=== PATIENT | male | born 2000 | race Caucasian/White ===

== ENCOUNTER 2023-06-25 10:45 | Emergency (ER) | payer BC, SELFPAY ==
--- NOTE | ~2023-06-25 | XR_ITS ---
XR thoracic spine 3V DATE: 06/25/2023 11:50 INDICATION: Patient fell snowboarding on May 03, 2023. Mid to left back pain. TECHNIQUE: AP, lateral and swimmer views COMPARISON: None FINDINGS: Moderate thoracic dextroscoliosis. No fracture or dislocation or bone destruction. The thoracic pedicles are intact. No paraspinal soft tissue thickening. IMPRESSION: Dextroscoliosis Reviewed, dictated and finalized at location B. IMPRESSION: Dextroscoliosis
[2023-06-25 11:01] VITALS: BP 120/42; PULSE 89; RESP 16; TEMP 35.7; O2SAT 100
--- NOTE | 2023-06-25 11:31 | ED.BACK ---
HPI - Back Pain/Injury General Chief Complaint: Back Pain/Injury Stated Complaint: Back Pain Time Seen by Provider: 06/25/23 11:20 Source: patient, RN notes reviewed, old records reviewed and other (friend) Mode of arrival: ambulatory Limitations: no limitations History of Present Illness HPI Narrative: 23 year old male accompanied by friend presents to express care with complaints of pain to his left upper thoracic back region since wiping out while snowboarding on May 03. Patient reports that he continues to have dull pain to his left thoracic back region which is aggravated by position changes, laughing, coughing rolling over in bed. Patient reports that pain is dull ache mainly but at times sharp with certain movements. Patient reports that he has not taken any OTC medications for his symptoms. Patient report that he has no radiation of pain in his legs or arms, moves all extremities on own power with no tingling or numbness to extremities. MD elicited complaint: back pain (thoracic) and fall (while snowboarding) Pertinent past history: recent trauma Onset (ago): week(s) (since injury on May 03) Pain scale (0-10): 5 Quality: aching Location: thoracic spine Radiation: none Exacerbating factors: coughing/sneezing and other (increased with some position changes and rolling over in bed) Treatments prior to arrival: other (none) Related Data Home Medications Medication Instructions Recorded Confirmed omeprazole 40 mg capsule,delayed 40 mg PO DAILY 06/25/23 06/25/23 release Allergies Allergy/AdvReac Type Severity Reaction Status Date / Time No Known Allergies Allergy Verified 06/25/23 10:58 Review of Systems Review of Systems: CONSTITUTIONAL: Denies fever, chills, or sweats. EYES: Denies visual changes, redness, or discharge. ENT: Denies rhinorrhea, congestion, sore throat, or otalgia. CARDIOVASCULAR: Denies chest pain, palpitations, or edema. RESPIRATORY: Denies cough or dyspnea. GASTROINTESTINAL: Denies abdominal pain, nausea, vomiting, or diarrhea. GENITOURINARY: Denies dysuria or hematuria. SKIN: Denies rash or itching. MUSCULOSKELETAL: reports left thoracic back pain after falling while snowboarding in April, or myalgia. NEUROLOGIC: Denies headache, numbness, or weakness. PSYCHIATRIC: Denies anxiety or depression. All systems reviewed & are unremarkable except as noted in HPI and below PMFSH Past Medical History Medical History (Updated 06/25/23 @ 12:47 by Gertrude Mao NP) GERD (gastroesophageal reflux disease) Surgical History Surgical History (Updated 06/25/23 @ 12:48 by Gertrude Mao NP) History of hydrocelectomy Status post surgical removal of pilonidal cyst Social History Social History (Updated 06/25/23 @ 12:49 by Gertrude Mao NP) Smoking status: Never smoker Alcohol intake: current Alcohol use details: social Substance use type: does not use Occupation/Education: student Gender identity (if verbalized by the patient): Male Comments At time of signature, agree with nursing past medical, surgical, social and family history. There is no relevant family history pertinent to the presenting complaint Exam Narrative: GENERAL: Well-appearing, well-nourished, and in no acute distress. HEAD: Normocephalic, atraumatic. EYES: PERRLA and EOMI. ENT: Nares clear, no rhinorrhea or epistaxis. Mucous membranes moist.TM's normal throat pink without swelling NECK: Supple.no lymphadenopathy CHEST: Clear to auscultation. No respiratory distress.SAO2 100% on room air HEART: Regular rate and rhythm. No murmur heard. Normal peripheral pulses. ABDOMEN: Soft, nontender, nondistended, normal active bowel sounds. EXTREMITIES: Normal range of motion. No edema. Pain to left thoracic back which occurred after falling when snowboarding On May 03. Patient denies any radiation to his extremities, denies any numbness or tingling to extremities. No midline spinal tend
== END 2023-06-25 12:30 | disposition home or self-care (01) ==
PROVIDERS: Emergency Provider Registered Nurse
DX: M54.6 Pain in thoracic spine (principal); K21.9 Gastro-esophageal reflux disease without esophagitis
CPT/HCPCS: 72072; 99213; G0463

== ENCOUNTER 2025-02-25 12:07 | Emergency (ER) | payer BC, SELFPAY ==
--- OUTSIDE RECORDS SUMMARY | 2022-05-01 01:09 | XMS_ITS | Continuity of Care Document ---
Author Organization [facility] [place] Address [address] [place] [address] [place] [id number] Phone Care Team Providers Care Stoker Erector And Servicer Name Role Phone Sumeet PT,MPT,ATC, Alessandro Unavailable Unavai lable Procedures Procedure Date Therapeutic Activities Neuromuscular Re-Ed Therapeutic Exercise Therapeutic Activities Neuromuscular Re-Ed Therapeutic Exercise Manual Therapy Therapeutic Activities Neuromuscular Re-Ed Therapeutic Exercise Manual Therapy Therapeutic Activities Neuromuscular Re-Ed Therapeutic Exercise Therapeutic Activities Neuromuscular Re-Ed Therapeutic Exercise Therapeutic Activities Neuromuscular Re-Ed Therapeutic Exercise Therapeutic Activities Neuromuscular Re-Ed Therapeutic Exercise Therapeutic Activities Neuromuscular Re-Ed Therapeutic Exercise Therapeutic Activities Neuromuscular Re-Ed Therapeutic Exercise Therapeutic Activities Neuromuscular Re-Ed Therapeutic Exercise PT Evaluation Moderate Complexity Therapeutic Activities Neuromuscular Re-Ed Therapeutic Exercise Advance Directives Directive Yes / No Effective Date File Name No Information Encounters Encounter Description Practice Location Reason(s) For Visit Diagnoses Date Provider Providers Copied on Encounter [facility] [facility], [place], [place], [id number], tel:[phone] [place] No Information 3 Sumeet [place], [place]. [facility] [facility], [place], [place], [id number], tel:[phone] [place] No Information 2 Marcus Butcher. . [facility], [place], [place], [id number], tel:[phone] [place] No Information 2 Arnold Christian. . [facility], [place], [place], [id number], tel:[phone] [place] No Information 2 Arnold Christian. . [facility], [place], [place], [id number], [place] tel:[phone] [place] No Information 2 Arnold Christian. . [facility], [place], [place], [id number], tel:[phone] [place] No Information 2 Sumeet [place], [place]. [facility], [place], [place], [id number], [place] tel:[phone] [place] No Information 2 Arnold Christian. . [facility], [place], [place], [id number], tel:[phone] [place] No Information 2 Sumeet [place], [place]. [facility], [place], [place], [id number], tel:[phone] [place] No Information 2 Sumeet [place], [place], . [facility] [place], [place], [place], [id number], tel:[phone] [place] No Information 2 Sumeet [place], . [facility] [facility], [place], [place], [id number], tel:[phone] [place] No Information 2 Sumeet [place], . [facility] [place] [address], [id number], tel:[phone] [place] No Information 2 Sumeet [place], [place], . Family History Family Member Type Diagnosis Age At Onset No Information Payers Payer name Insurance type Covered libertarian ID Nereyda alvarez(s) [facility] [id number] Social History Type Description Quantity Date Captured Comments Sex Male Smoking Status No Information Chief Complaint And Reason For Visit No Information Reason For Referral Reason For Referral No Information History Of Present Illness Encounter Date Complaint History Of Prese nt Illness No Information Functional Status Date Functional Assessmen t No Information Instructions Date Instruction Additional Infor mation No Information Assessments Type Assessment Date No Information Patient Care Teams Name Effective Dates (start - stop) Status Members No Information
[2025-02-25 12:19] VITALS: BP 137/71; PULSE 94; RESP 20; TEMP 36.8; O2SAT 100
--- NOTE | 2025-02-25 12:20 | ED_ITS ---
HPI - Skin/Abscess/Foreign Bdy General Chief complaint: Skin/Abscess/Foreign Body Stated complaint: rash Time Seen by Provider: 02/25/25 12:30 Source: patient and RN notes reviewed Mode of arrival: ambulatory Limitations: no limitations History of Present Illness HPI narrative: 24-year-old male presents with concern for a rash on his face. Reports it has been there for about 1 month and is started on his eyes. Reports history of axilla. Reports he was using Aquaphor and X him a cream, but the rash is only spread to his face and neck. He denies any difficulty breathing, swollen lips, swollen tongue. He reports he works around chemicals that he thinks may attribute to his rash MD complaint: rash Related Data Allergies Allergy/AdvReac Type Severity Reaction Status Date / Time No Known Allergies Allergy Verified 02/25/25 12:40 Review of Systems Review of Systems: CONSTITUTIONAL: Denies malaise, chills, sweats, or fever. EYES: Denies redness, or discharge. ENT: Denies rhinorrhea, congestion, swollen lips, swollen tongue CARDIOVASCULAR: Denies chest pain, palpitations, or edema. RESPIRATORY: Denies cough or dyspnea. GASTROINTESTINAL: Denies abdominal pain, nausea, vomiting SKIN: Reports irritating rash on his face MUSCULOSKELETAL: Denies joint pain or myalgia. NEUROLOGIC: Denies headache. All systems reviewed & are unremarkable except as noted in HPI and below PMFSH Past Medical History Medical History (Updated 02/25/25 @ 12:38 by Shannan Gonzalze APRN) GERD (gastroesophageal reflux disease) Surgical History Surgical History (Updated 06/25/23 @ 12:48 by Gertrude Mao APRN) History of hydrocelectomy Status post surgical removal of pilonidal cyst Social History Social History (Updated 06/25/23 @ 12:49 by Gertrude Mao APRN) Smoking status: Never smoker Alcohol intake: current Alcohol use details: social Substance use type: does not use Occupation/Education: student Gender identity (if verbalized by the patient): Male Comments At time of signature, agree with nursing past medical, surgical, social and family history. There is no relevant family history pertinent to the presenting complaint Exam Narrative: GENERAL: Well-appearing, well-nourished, and in no acute distress. HEAD: Normocephalic, atraumatic. EYES: PERRLA, conjunctivae clear, and EOMI. ENT: Mucous membranes moist. Oropharynx without edema, erythema or lesions. NECK: Supple. No lymphadenopathy CHEST: Clear to auscultation. No respiratory distress. HEART: Regular rate and rhythm. SKIN: Warm, dry. Dry skin with erythema noted to the generalized face and eyelids NEURO: Alert and oriented x3. PSYCH: Normal mood and affect Course Course Level of Care: Express Care Visit MDM Differential Diagnosis Differential Diagnosis: I evaluated this patient in the [facility] care. History is obtained from patient who is an independent historian and physical exam was performed.? Available medical records were reviewed. ? Exam findings and relevant testing show no acute concerns or changes; patient is non-toxic appearing and is in no distress. ? Does not appear at this time to be erythema multiforme, bullous, SJS, TEN; no evidence at this time to suggest RMSF, endocarditis or Lyme disease; patient looks well, nontoxic and is tolerating oral intake; no neurologic signs or symptoms; no headache, photophobia or neck pain; afebrile; appropriate for initial outpatient treatment; discussed the importance of follow-up, patient agrees; question, viral exanthema, contact dermatitis, allergic dermatitis, eczema, urticaria. No soft palate or uvula edema, no tongue, lip edema or other mucosal involvement, no respiratory compromise, no stridor, no wheezing, no wheezing, no history of syncope, no hypotension, no nausea, vomiting, or diarrhea. Instructed patient to go to nearest ER immediately for any worsening symptoms including but not limited to: fever, spreading rash, pain, sore throat, headache, dizziness, chest pain, trouble breathing, or any symptoms concerning to the patient. Differential diagnosis and treatment plan were discussed with the patient. Patient agrees with discussion and after shared medical decision making agrees with plan of care. All questions were answered to the patient's satisfaction. Patient is appropriate for outpatient treatment and follow-up. Discharge Plan Discharge Clinical Impression: Dermatitis Patient Disposition: Home Condition: Stable Instructions: Dermatitis (ED) Additional Instructions: Wash the area with gentle soap and water only. Take prednisone as directed Use jkoc-neh-toconhg hydrocortisone cream to decrease itchiness and inflammation. You can also use uinx-ppo-ntqokra Aquaphor to soothe your skin. Once the rash is healed use moisturizer such as Cetaphil or CeraVe Avoid scratching when possible to prevent worsening of the condition and disruption of the skin that could lead to bacterial infection To relieve itching, place a cool washcloth or some ice over the area that itches, rather than scratching Follow up with primary care provider or seek ER if you have trouble breathing, become hoarse, or start wheezing, develop belly cramps, vomiting or feel dizzy. Patient Language: Wolof Prescriptions: New prednisone 20 mg tablet 40 mg PO DAILY 5 Days Qty: 10 0RF Follow-up/Referrals: UNKNOWN,DOCTOR [Primary Care Provider] Stand Alone Forms: Work/School Release IP Time of Disposition: 12:39
== END 2025-02-25 12:43 | disposition home or self-care (01) ==
PROVIDERS: Emergency Provider Nurse Practitioner
DX: L30.9 Dermatitis, unspecified (principal); K21.9 Gastro-esophageal reflux disease without esophagitis
CPT/HCPCS: 99213; G0463

== ENCOUNTER 2025-03-06 17:59 | Emergency (ER) | payer BC, SELFPAY ==
[2025-03-06 18:16] VITALS: BP 152/85; PULSE 97; RESP 16; TEMP 36.6; O2SAT 100
--- NOTE | 2025-03-06 19:04 | ED.BACK ---
HPI - Back Pain/Injury General Chief Complaint: Back Pain/Injury Stated Complaint: Back Pain Time Seen by Provider: 03/06/25 18:45 Source: patient and RN notes reviewed Mode of arrival: ambulatory Limitations: no limitations History of Present Illness HPI Narrative: 24-year-old male patient presents today complaining of midline low back pain x2 weeks. Denies injury or trauma. States he woke up from sleep with stiffness in the back which developed into some pain. It improved for a few days then worsened again after working out in the gym, then improved for a few days, then worsened again today. Denies numbness or tingling in the legs or genitalia. Reports some radiation of pain to the left thigh occasionally. Denies loss of bowel or bladder control. Currently rates his pain 3/10, which increases with movement. No OTC treatment prior to arrival. Related Data Allergies Allergy/AdvReac Type Severity Reaction Status Date / Time No Known Allergies Allergy Verified 03/06/25 18:40 PMFSH Past Medical History Medical History (Updated 03/06/25 @ 19:11 by Berna Castillo APRN, CHRISTINE) GERD (gastroesophageal reflux disease) Surgical History Surgical History (Updated 06/25/23 @ 12:48 by Gertrude Mao APRN) History of hydrocelectomy Status post surgical removal of pilonidal cyst Social History Social History (Updated 06/25/23 @ 12:49 by Gertrude Mao APRN) Smoking status: Never smoker Alcohol intake: current Alcohol use details: social Substance use type: does not use Occupation/Education: student Gender identity (if verbalized by the patient): Male Comments At time of signature, I have reviewed and agree with nursing past medical, surgical, social and family history unless otherwise noted. Please see nursing chart for further information. There is no relevant family history pertinent to the presenting complaint Exam Narrative: GENERAL: Well-appearing, well-nourished, and in no acute distress. HEAD: Normocephalic, atraumatic. EYES: EOMI. No redness or drainage. Conjunctivae normal. ENT: Mucous membranes pink and moist. NECK: Normal AROM. CHEST: No respiratory distress. MUSCULOSKELETAL: No bony or muscular tenderness of the thoracic or lumbar spine. Patient localizes his pain to the lower lumbar area. Distal sensation intact. Saddle sensation intact. Capillary refill normal. 5/5 strength in BLE. EXTREMITIES: Normal range of motion. No edema. SKIN: Warm, dry, no rash. Capillary refill normal. Normal skin turgor. NEURO: No focal deficits. Alert and oriented x3. Gait steady. PSYCH: Normal affect. No signs of depression or anxiety. Course Course Level of Care: Express Care Visit Vital Signs Vital signs: Vital Signs Temperature 98 F 03/06/25 18:16 Pulse Rate 97 03/06/25 18:16 Respiratory Rate 16 03/06/25 18:16 Blood Pressure 152/85 H 03/06/25 18:16 Pulse Oximetry 100 03/06/25 18:16 Temperature 98 F 03/06/25 18:16 Pulse Rate 97 03/06/25 18:16 Respiratory Rate 16 03/06/25 18:16 Blood Pressure 152/85 H 03/06/25 18:16 Pulse Oximetry 100 03/06/25 18:16 Reviewed MDM MDM Narrative Medical decision making narrative: 24-year-old male patient presents today complaining of midline low back pain x2 weeks. Denies injury or trauma. States he woke up from sleep with stiffness in the back which developed into some pain. It improved for a few days then worsened again after working out in the gym, then improved for a few days, then worsened again today. Denies numbness or tingling in the legs or genitalia. Reports some radiation of pain to the left thigh occasionally. Denies loss of bowel or bladder control. Currently rates his pain 3/10, which increases with movement. No OTC treatment prior to arrival. Upon exam, patient is nontender in the back. Neurovascularly intact in bilateral lower extremities. Saddle sensation intact. Patient will be treated with a muscle relaxer and anti-inflammatory for low back strain/spasms. No imaging indicated as patient has not had a traumatic injury or trauma. Patient agrees with plan. Vital signs stable. Anticipatory guidance given. Differential Diagnosis Differential Diagnosis: Low back strain, spasm, radiculopathy Critical Care Time Critical Care Time Critical Care Time: No Discharge Plan Discharge Clinical Impression: Strain of lumbar region Qualifiers: Encounter type: initial encounter Qualified Code(s): S39.012A - Strain of muscle, fascia and tendon of lower back, initial encounter Patient Disposition: Home Condition: Stable Instructions: Low Back Strain (ED), Lower Back Exercises (ED) Additional Instructions: Please take the Flexeril and diclofenac as prescribed. Do not drive within 8 hours of taking the Flexeril as it can make you drowsy. Rest the back. No heavy lifting, twisting, jumping until the back is feeling better. Follow-up with your PCP in 1 week if symptoms are not improving. Go to the ER immediately if symptoms worsen to include numbness or tingling in the legs or genitalia, loss of bowel or bladder control. Patient Language: [place] Prescriptions: New cyclobenzaprine 10 mg tablet 10 mg PO TID PRN (Reason: muscle spasm) Qty: 20 0RF diclofenac sodium 50 mg tablet,delayed release (DR/EC) 50 mg PO TID PRN (Reason: pain) Qty: 20 0RF Follow-up/Referrals: PHYSICIAN,DIRECTOR OF DONOR RELATIONS [Primary Care Provider, Internal Medicine] Time of Disposition: 19:12
== END 2025-03-06 19:15 | disposition home or self-care (01) ==
PROVIDERS: Emergency Provider Nurse Practitioner
DX: S39.012A Strain of muscle, fascia and tendon of lower back, initial encounter (principal); X58.XXXA Exposure to other specified factors, initial encounter; K21.9 Gastro-esophageal reflux disease without esophagitis
CPT/HCPCS: 99213; G0463